=== PATIENT | male | born 2000 ===

== ENCOUNTER 2021-02-13 23:11 | Emergency (ER) | payer OTHER ==
[~2021-02-13] VITALS: Ht 167.6 cm; Wt 54.4 kg
[2021-02-13] MEDS ORDERED: LORA10ER PO (23:19)
[2021-02-14] MEDS ORDERED: ALBU90OI INH (02:44)
[2021-02-14] MEDS ORDERED: Prednisone50 MG PO (02:44)
== END 2021-02-14 02:55 | disposition home or self-care (01) ==
LOC: ER 23:11
DX: J45.909 Unspecified asthma, uncomplicated (principal); R11.0 Nausea; R10.9 Unspecified abdominal pain; Z88.0 Allergy status to penicillin; Z87.891 Personal history of nicotine dependence
CPT/HCPCS: 99283; A9270; J7512